=== PATIENT | female | born 1965 | race American Indian/Alaskan Native ===

== ENCOUNTER 2020-07-22 07:49 | Emergency (ER) | payer OTHER ==
[2020-07-22 09:14] LABS: Basophils % (Auto) 0.8 % (0.0-1.8); Eosinophils # (Auto) 0.2 K/mm3 (0.0-0.4); Eosinophils % (Auto) 4.4 % (0.0-4.3); Hematocrit 31.5 % (30.3-42.9); Hemoglobin 10.1 gm/dl (10.1-14.3); Lymphocytes % (Auto) 40.6 % (13.4-35.0); Mean Corpuscular HGB Conc 32 % (30-34); Mean Corpuscular Volume 74 fl (79-97); Monocytes # (Auto) 0.3 K/mm3 (0.0-0.8); Monocytes % (Auto) 5.7 % (0.0-7.3); Platelet Count 260 K/mm3 (140-440); Red Blood Count 4.27 M/mm3 (3.65-5.03); Red Cell Distribution Width 15.2 % (13.2-15.2)
[2020-07-22 09:21] LABS: Bilirubin,Urine NEG (Negative); Blood,Urine NEG (Negative); Color,Urine Yellow (Yellow); Protein,Urine <15 mg/dL mg/dL (Negative); Urobilinogen,Urine < 2.0 mg/dL (<2.0)
[2020-07-22 09:36] LABS: Alanine Aminotransferase 19 units/L (7-56); Albumin 4.6 g/dL (3.9-5); Blood Urea Nitrogen 12 mg/dL (7-17); Calcium 9.1 mg/dL (8.4-10.2); Hemolysis Index 11
[2020-07-22 09:45] LABS: BUN/Creatinine Ratio 17
[2020-07-22] MEDS ORDERED: oxyCODONE /ACETAMINOPHEN 5-325MG TAB PO ONE (10:35)
--- NOTE | 2020-07-22 10:42 | Emergency Department Report ---
ED Abdominal Pain HPI - General Chief Complaint: Abdominal Pain Stated Complaint: PELVIC/BACK PAIN Source: patient Mode of arrival: Ambulatory Limitations: No Limitations - History of Present Illness Initial Comments: 55-year-old female complaining of abdominal pain started last night pain is in her right lower quadrant radiating to her back. She denies any vomiting diarrhea no fever or chills. Patient suffers with diabetic neuropathy she is ambulatory with a cane due to chronic neuropathy pain. She is in no acute distress denies chest pain and shortness of breath. -: During the night Location: RLQ Radiation: back Migration to: no migration Severity: moderate Quality: cramping, stabbing, aching Improves With: nothing Worsens With: nothing Associated Symptoms: nausea. denies: chills, constipation, dysuria, hematemesis - Related Data Previous Rx's Medication Instructions Recorded Last Taken Type Metformin HCl [Fortamet ER] 1,000 mg PO BID #120 tab.er.24 06/04/13 01/08/15 Rx lisinopriL [Zestril TAB] 10 mg PO BID #90 tablet 06/04/13 01/08/15 Rx Albuterol Mdi (or & Nicu Only) 2 puff IH QID PRN #1 inhalation 01/10/15 Unknown Rx [ProAir HFA Inhaler] oxyCODONE /ACETAMINOPHEN [Percocet 1 tab PO Q6HR PRN #20 tablet 06/10/15 Unknown Rx 5/325] Allergies Allergy/AdvReac Type Severity Reaction Status Date / Time Penicillins Allergy Rash Verified 07/22/20 08:17 ED Review of Systems ROS: Stated complaint: PELVIC/BACK PAIN Other details as noted in HPI Comment: All other systems reviewed and negative Constitutional: no symptoms reported. denies: chills, fever, malaise ENT: denies: ear pain Respiratory: no symptoms reported Cardiovascular: denies: chest pain, palpitations, dyspnea on exertion Endocrine: no symptoms reported Gastrointestinal: abdominal pain, nausea. denies: vomiting, diarrhea, constipation, hematemesis Genitourinary: denies: urgency, dysuria, frequency, hematuria, discharge Neurological: denies: headache, weakness, numbness, paresthesias ED Past Medical Hx - Past Medical History Hx Hypertension: Yes Hx Diabetes: Yes Hx Asthma: Yes - Surgical History Additional Surgical History: Hysterectomy - Social History Smoking Status: Never Smoker Substance Use Type: None - Medications Home Medications: Home Medications Medication Instructions Recorded Confirmed Last Taken Type Metformin HCl [Fortamet ER] 1,000 mg PO BID #120 tab.er.24 06/04/13 06/10/15 01/08/15 Rx lisinopriL [Zestril TAB] 10 mg PO BID #90 tablet 06/04/13 06/10/15 01/08/15 Rx Albuterol Mdi (or & Nicu Only) 2 puff IH QID PRN #1 inhalation 01/10/15 06/10/15 Unknown Rx [ProAir HFA Inhaler] oxyCODONE /ACETAMINOPHEN [Percocet 1 tab PO Q6HR PRN #20 tablet 06/10/15 Unknown Rx 5/325] ED Physical Exam - General Limitations: No Limitations General appearance: alert, in no apparent distress - Head Head exam: Present: atraumatic - Eye Eye exam: Present: normal appearance - ENT ENT exam: Present: normal exam - Neck Neck exam: Present: normal inspection - Respiratory Respiratory exam: Present: normal lung sounds bilaterally - Cardiovascular Cardiovascular Exam: Present: regular rate, normal heart sounds - GI/Abdominal GI/Abdominal exam: Present: soft, tenderness, normal bowel sounds - Extremities Exam Extremities exam: Present: normal inspection - Back Exam Back exam: Present: normal inspection - Neurological Exam Neurological exam: Present: alert, oriented X3 - Psychiatric Psychiatric exam: Present: normal affect - Skin Skin exam: Present: warm, dry, intact ED Course Vital Signs 07/22/20 08:16 Temperature 98.3 F Pulse Rate 64 Blood Pressure 149/75 [Left] O2 Sat by Pulse 100 Oximetry - Reevaluation(s) Reevaluation #1: 07/22/20 13:50 Patient in no acute distress CT results back no acute findings for appendicitis patient informed ED Medical Decision Making - Lab Data Result diagrams: 07/22/20 08:57 07/22/20 08:57 - Radiology Data Radiology results: report reviewed T ABDOMEN AND PELVIS WITH CONTRAST HISTORY: MAIN. Right lower quadrant pain COMPARISON: None. TECHNIQUE: CT images of the abdomen and pelvis were obtained following administration of intravenous contrast. All CT scans at this location are performed using CT dose reduction for ALARA by means of automated exposure control. CONTRAST: 100 ml of intravenous contrast administered. FINDINGS: Lungs/bones: Lung bases appear normal. Abdomen/pelvis: Mild fatty infiltration of the liver. The spleen, adrenal glands, pancreas appear normal. Prior cholecystectomy. Portal vein is patent. Celiac and SMA appear normal. Bilateral kidneys are unremarkable. There is constipation throughout the colon. The appendix appears dilated however filled with gas. There is no surrounding inflammatory change seen. The distal aspect of the appendix measures 1.1 cm. Degenerative changes seen throughout spine. IMPRESSION: 1. The appendix is dilated however gas-filled. The distal aspect of the appendix measures 1.1 cm and is gas-filled. No significant inflammatory change to suggest acute appendicitis. - Medical Decision Making 55-year-old female with a past medical history of diabetes and diabetic neuropathy. She suffers with chronic neuropathy pain and ambulates with a cane. She presented to the emergency room complaining of right lower quadrant abdominal pain that was not relieved with her usual pain medications the pain was associated with nausea but there is no vomiting no diarrhea no fever no chills. Labs reviewed there are no acute findings her urine is negative for urine infection her glucose was 111. CT of her abdomen was done with contrast and there is no signs of acute appendicitis. Patient will be discharged home with outpatient follow-up with her PCP or Dr. Goodman - Differential Diagnosis Acute appendicitis gastroparesis abdominal pain Critical Care Time: No Critical care attestation.: If time is entered above; I have spent that time in minutes in the direct care of this critically ill patient, excluding procedure time. ED Disposition Clinical Impression: Abdominal pain Qualifiers: Abdominal location: right lower quadrant Qualified Code(s): R10.31 - Right lower quadrant pain Disposition: TO HOME OR SELFCARE Is pt being admited?: No Does the pt Need Aspirin: No Condition: Stable Instructions: Abdominal Pain, Adult, [id number], Abdominal Pain (ED) Additional Instructions: Continue with all your home medications. Take Tylenol 2 tablets every 4-6 hours as needed for pain. Follow-up with your primary care doctor on Friday or you can follow-up with Dr. Goodman. Your urine test was negative for infection. The CAT scan of your abdomen did not show any signs of acute appendicitis and your blood work was within normal limits Referrals: PRIMARY CARE, [Primary Care Provider] - 3-5 Days Time of Disposition: 13:40
--- NOTE | 2020-07-22 11:43 | Cat Scan Report ---
CT ABDOMEN AND PELVIS WITH CONTRAST HISTORY: MAIN. Right lower quadrant pain COMPARISON: None. TECHNIQUE: CT images of the abdomen and pelvis were obtained following administration of intravenous contrast. All CT scans at this location are performed using CT dose reduction for ALARA by means of automated exposure control. CONTRAST: 100 ml of intravenous contrast administered. FINDINGS: Lungs/bones: Lung bases appear normal. Abdomen/pelvis: Mild fatty infiltration of the liver. The spleen, adrenal glands, pancreas appear no rmal. Prior cholecystectomy. Portal vein is patent. Celiac and SMA appear normal. Bilateral kidneys a re unremarkable. There is constipation throughout the colon. The appendix appears dilated however filled with gas. There is no surrounding inflammatory change see n. The distal aspect of the appendix measures 1.1 cm. Degenerative changes seen throughout spine. IMPRESSION: 1. The appendix is dilated however gas-filled. The distal aspect of the appendix measures 1.1 cm and is gas-filled. No significant inflammatory change to suggest acute appendicitis. 2. Fatty infiltration of the liver. Signer Name: Rolly Casillas MD Signed: 07/22/2020 11:39 AM Workstation Name: [id number]
[2020-07-22 14:09] VITALS: BP 139/89
== END 2020-07-22 14:09 | disposition home or self-care (01) ==
LOC: ED 07:49
DX: R10.31 Right lower quadrant pain (principal); I10 Essential (primary) hypertension; E11.9 Type 2 diabetes mellitus without complications; J45.909 Unspecified asthma, uncomplicated; Z90.710 Acquired absence of both cervix and uterus; Z88.0 Allergy status to penicillin; Z79.84 Long term (current) use of oral hypoglycemic drugs; Z79.899 Other long term (current) drug therapy
CPT/HCPCS: 36415; 74177; 80053; 81001; 85025; 99284; Q9967